=== PATIENT | female | born 1995 | race African-American/Black ===

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

== ENCOUNTER 2017-02-23 14:13 | Observation (INO) | payer MEDICAID ==
[~2017-02-23] VITALS: Ht 156.2 cm; Wt 90.3 kg
[2017-02-23] MEDS ORDERED: PNV1TABL76 MT (14:33)
[2017-02-23] MEDS ORDERED: KEPP500 PO (14:33)
== END 2017-02-23 15:00 | disposition home or self-care (01) ==
LOC: L&D 14:13
PROVIDERS: ADMIT Obstetrics & Gynecology; ATTEND Obstetrics & Gynecology
DX: O26.893 Other specified pregnancy related conditions, third trimester (principal); J11.1 Influenza due to unidentified influenza virus with other respiratory manifestations; O21.2 Late vomiting of pregnancy; Z3A.35 35 weeks gestation of pregnancy
CPT/HCPCS: 99281; G0378

== ENCOUNTER 2017-03-24 11:24 | Inpatient (IN) | payer MEDICAID ==
[~2017-03-24] VITALS: Ht 157.5 cm; Wt 90.7 kg
[~2017-03-24 11:24] MED LIST: KEPP500 PO; PNV1TABL76 MT
[2017-03-24] MEDS ORDERED: CARBOPROST TROMETHAMINE 250 MCG/ML AMPUL IM PRN (11:45)
[2017-03-24] MEDS ORDERED: MISOPROSTOL 200MCG TABLET VG PRN (11:45)
[2017-03-24] MEDS ORDERED: NALOXONE HCL 0.4 MG/ML 1ML VIAL IM PRN (11:45)
[2017-03-24] MEDS ORDERED: LACTATED RINGERS 1,000 ML IV SCH (12:00)
[2017-03-24] MEDS ORDERED: LIDOCAINE HCL 1% 20ML VIAL (Pyxis) INJ INFIL PRN (12:00)
[2017-03-24] MEDS ORDERED: METHYLERGONOVINE MALEATE 0.2 MG/ML IM PRN ×2 (12:00→14:30)
[2017-03-24] MEDS: BUTORPHANOL TARTRATE 2 MG/ML VIAL IV PRN ×2 (12:03→13:18)
[2017-03-24] MEDS ORDERED: PENICILLIN G POTASSIUM 5 MMU in DEXT 5% WATER 100 ML IV NR (12:30)
[2017-03-24 12:51] LABS: CLARITY URINE CLEAR (CLEAR); COLOR URINE YELLOW (YELLOW); KETONES URINE 1+ (NEGATIVE); LEUKOCYTE ESTERASE URINE 3+ (NEGATIVE); NITRITE URINE NEGATIVE (NEGATIVE); OCCULT BLOOD URINE NEGATIVE (NEGATIVE); PROTEIN URINE NEGATIVE (NEGATIVE); SPECIFIC GRAVITY URINE 1.019 (1.005-1.030); UROBILINOGEN URINE 0.2 E.U./dL (0.2-1.0)
[2017-03-24 12:54] LABS: BASOPHILS % 0.2 % (0.0-2.0); EOSINOPHILS % 3.1 % (0.0-5.0); HEMATOCRIT. 27.7 % (36.0-48.0); HEMOGLOBIN. 9.6 g/dL (12.0-16.0); LYMPHOCYTES % 31.2 % (20.0-50.0); MEAN CORPUSCULAR HEMOGLOBIN 27.1 pg (28.0-32.0); MEAN CORPUSCULAR VOLUME 78.5 fL (81.0-99.0); MEAN PLATELET VOLUME 7.9 fl (7.4-10.4); MONOCYTES % 9.5 % (2.0-8.0); PLATELET 254 x1000/uL (130-400); RED BLOOD CELL COUNT 3.53 mill/uL (4.2-5.4); RED CELL DISTRIBUTION WIDTH 13.4 % (11.6-14.6)
[2017-03-24 13:00] LABS: PARTIAL THROMBOPLASTIN TIME 29.8 sec (23.4-31.0); PROTHROMBIN TIME 10.2 sec (9.4-11.6)
[2017-03-24 13:05] LABS: CHLORIDE 104 mEq/L (98-107)
[2017-03-24 13:14] LABS: *AMPHETAMINES SCREEN URINE NEGATIVE (NEGATIVE); *BARBITURATES SCREEN URINE NEGATIVE (NEGATIVE); *BENZODIAZEPINES SCREEN URINE NEGATIVE (NEGATIVE); *COCAINE SCREEN URINE NEGATIVE (NEGATIVE); METHADONE URINE SCREEN NEGATIVE (NEGATIVE); OPIATES URINE SCREEN NEGATIVE (NEGATIVE); PHENCYCLIDINE URINE SCREEN NEGATIVE (NEGATIVE)
[2017-03-24 13:24] LABS: CANNABINOID URINE SCREEN PRESUMTIVE POSITIVE (NEGATIVE)
[2017-03-24 13:28] LABS: HEPATITIS B SURFACE ANTIGEN NEGATIVE; RUBELLA IGG 39.2 IU/mL (4.99-10)
[2017-03-24] MEDS: DEXT 5%/LR + PITOCIN 20UNITS/L 1,000 ML IV SCH ×2 (13:37→14:25)
[2017-03-24] MEDS: LEVETIRACETAM 500MG TABLET PO SCH ×2 (13:37→21:09)
[2017-03-24] MEDS ORDERED: ONDANSETRON HCL 4MG/2ML VIAL IV PRN (14:15)
[2017-03-24] MEDS ORDERED: DEXT 5%/LR + PITOCIN 20UNITS/L 1,000 ML IV SCH (14:21)
[2017-03-24] MEDS ORDERED: ACETAMINOPHEN WITH CODEINE 300/30MG TABLET PO PRN ×2 (14:30)
[2017-03-24] MEDS ORDERED: BENZOCAINE/LANOLIN/ALOE VERA SPRAY TOP PRN (14:30)
[2017-03-24] MEDS ORDERED: DIPHENHYDRAMINE 25MG CAPSULE PO PRN (14:30)
[2017-03-24] MEDS ORDERED: GLYCERIN/WITCH HAZEL LEAF MEDICATED PAD TOP PRN (14:30)
[2017-03-24] MEDS ORDERED: LANOLIN OINT 0.25 GM TUBE TOP PRN (14:30)
[2017-03-24] MEDS ORDERED: HEMORRHOIDAL SUPP PR PRN (14:30)
[2017-03-24] MEDS ORDERED: IBUPROFEN 400MG TABLET PO PRN (14:30)
[2017-03-24] MEDS ORDERED: TETANUS, DIPHTHERIA, PERTUSSIS VAC/PF 0.5ML (>7YR OLD) IM ONE (14:30)
[2017-03-24 15:30] VITALS: BP 131/71
[2017-03-24 16:00] VITALS: BP 123/68
[2017-03-24] MEDS ORDERED: PENICILLIN G POTASSIUM 2.5 MMU in DEXTROSE 5% WATER 50 ML IV SCH ×4 (16:30)
[2017-03-24] MEDS ORDERED: INFLUENZA VIRUS VACCINE 0.5ML SYR IM ONE (17:00)
[2017-03-24] MEDS: MAGNESIUM/ALUMINUM HYDROXIDE/SIMETHICONE 30ML UDC PO SCH (18:57)
[2017-03-24 19:07] LABS: BASOPHILS % 0.1 % (0.0-2.0); EOSINOPHILS % 0.7 % (0.0-5.0); HEMATOCRIT. 26.7 % (36.0-48.0); HEMOGLOBIN. 9.2 g/dL (12.0-16.0); LYMPHOCYTES % 12.7 % (20.0-50.0); MEAN CORPUSCULAR HEMOGLOBIN 27.4 pg (28.0-32.0); MEAN CORPUSCULAR VOLUME 79.7 fL (81.0-99.0); MEAN PLATELET VOLUME 8.5 fl (7.4-10.4); NEUTROPHILS % 78.5 % (40.0-76.0); PLATELET 243 x1000/uL (130-400); RED BLOOD CELL COUNT 3.35 mill/uL (4.2-5.4)
[2017-03-24] MEDS ORDERED: LEVETIRACETAM 500MG TABLET PO SCH (21:00)
[2017-03-24] MEDS ORDERED: CARBAMAZEPINE 200MG TABLET PO SCH (21:00)
[2017-03-24] MEDS: DOCUSATE SODIUM 100MG CAPSULE PO SCH (21:09)
[2017-03-24] MEDS: SIMETHICONE 80MG TABLET CHEW PO SCH (21:10)
[2017-03-24] MEDS: CARBAMAZEPINE 200MG TABLET PO SCH (22:25)
[2017-03-25 00:40] VITALS: BP 124/64
[2017-03-25 06:28] LABS: BASOPHILS % 0.4 % (0.0-2.0); EOSINOPHILS % 4.6 % (0.0-5.0); HEMATOCRIT. 24.5 % (36.0-48.0); HEMOGLOBIN. 8.4 g/dL (12.0-16.0); LYMPHOCYTES % 25.7 % (20.0-50.0); MEAN CORPUSCULAR HEMOGLOBIN 27.4 pg (28.0-32.0); MEAN CORPUSCULAR VOLUME 79.4 fL (81.0-99.0); MEAN PLATELET VOLUME 8.1 fl (7.4-10.4); MONOCYTES % 8.9 % (2.0-8.0); NEUTROPHILS % 60.4 % (40.0-76.0); PLATELET 223 x1000/uL (130-400); RED BLOOD CELL COUNT 3.08 mill/uL (4.2-5.4); RED CELL DISTRIBUTION WIDTH 13.3 % (11.6-14.6)
[2017-03-25 09:00] VITALS: BP 128/61
[2017-03-25] MEDS: LEVETIRACETAM 500MG TABLET PO SCH ×2 (10:16→20:50)
[2017-03-25] MEDS: PRENATAL VIT/FE FUMARATE/FA TABLET PO SCH (10:17)
[2017-03-25] MEDS: CARBAMAZEPINE 200MG TABLET PO SCH ×2 (10:17→20:51)
[2017-03-25] MEDS: FERROUS SULFATE 325MG TABLET PO SCH ×2 (10:17→16:31)
[2017-03-25] MEDS: SIMETHICONE 80MG TABLET CHEW PO SCH ×3 (10:18→20:48)
[2017-03-25] MEDS: MAGNESIUM/ALUMINUM HYDROXIDE/SIMETHICONE 30ML UDC PO SCH ×3 (10:19→20:48)
[2017-03-25 16:00] VITALS: BP 106/43
[2017-03-25 20:00] VITALS: BP 106/67
[2017-03-25] MEDS: DOCUSATE SODIUM 100MG CAPSULE PO SCH (20:49)
[2017-03-26 05:15] VITALS: BP 105/65
[2017-03-26 07:42] VITALS: BP 114/63
[2017-03-26] MEDS: MAGNESIUM/ALUMINUM HYDROXIDE/SIMETHICONE 30ML UDC PO SCH (08:50)
[2017-03-26] MEDS: LEVETIRACETAM 500MG TABLET PO SCH (08:51)
[2017-03-26] MEDS: PRENATAL VIT/FE FUMARATE/FA TABLET PO SCH (08:51)
[2017-03-26] MEDS: SIMETHICONE 80MG TABLET CHEW PO SCH (08:51)
[2017-03-26] MEDS: FERROUS SULFATE 325MG TABLET PO SCH (08:51)
[2017-03-26] MEDS: CARBAMAZEPINE 200MG TABLET PO SCH (08:52)
== END 2017-03-26 10:45 | disposition home or self-care (01) | DRG 560 ==
LOC: L&D 11:24 → OBSVTOIN 13:07 → 7EST PP/OB 15:07
PROVIDERS: ADMIT Specialist; ATTEND Specialist
PROC: 0HQ9XZZ Repair Perineum Skin, External Approach (ICD-10-PCS; 2017-03-24)
PROC: 10E0XZZ Delivery of Products of Conception, External Approach (ICD-10-PCS; principal; 2017-03-24 13:07)
DX: O99.354 Diseases of the nervous system complicating childbirth (principal); G40.909 Epilepsy, unspecified, not intractable, without status epilepticus; D64.9 Anemia, unspecified; O99.02 Anemia complicating childbirth; O99.324 Drug use complicating childbirth; F12.10 Cannabis abuse, uncomplicated; O70.0 First degree perineal laceration during delivery; O71.82 Other specified trauma to perineum and vulva; Z3A.39 39 weeks gestation of pregnancy; Z37.0 Single live birth; Z79.899 Other long term (current) drug therapy
CPT/HCPCS: 36415; 80053; 80305; 80349; 81001; 85025; 85610; 85730; 86592; 86703; 86762; 86850; 86900; 87086; 87340; G0378; J0595; J2310; J2540; J2590; J3490; J7060; J7120

== ENCOUNTER 2022-09-21 05:41 | Emergency (ER) | payer MEDICAID ==
[~2022-09-21] VITALS: Ht 170.2 cm; Wt 74.0 kg
[~2022-09-21 05:41] MED LIST changes: -PNV1TABL76 MT
[2022-09-21 05:46] VITALS: TEMP 98.5; O2SAT 100
[2022-09-21] MEDS ORDERED: CARBAMAZEPINE 100MG TABLET CHEW PO ONE (06:30)
[2022-09-21] MEDS ORDERED: LEVETIRACETAM 500MG TABLET PO ONE (06:30)
[2022-09-21 07:58] LABS: *AMPHETAMINES SCREEN URINE NEGATIVE (NEGATIVE); *BARBITURATES SCREEN URINE NEGATIVE (NEGATIVE); *BENZODIAZEPINES SCREEN URINE NEGATIVE (NEGATIVE); *COCAINE SCREEN URINE NEGATIVE (NEGATIVE); ECSTASY MDMA SCREEN URINE NEGATIVE (NEGATIVE); METHADONE URINE SCREEN NEGATIVE (NEGATIVE); OPIATES URINE SCREEN NEGATIVE (NEGATIVE); PHENCYCLIDINE URINE SCREEN NEGATIVE (NEGATIVE)
[2022-09-21 08:04] LABS: CANNABINOID URINE SCREEN PRESUMTIVE POSITIVE (NEGATIVE)
[2022-09-21 08:23] VITALS: BP 149/88; PULSE 64; RESP 14
== END 2022-09-21 09:25 | disposition home or self-care (01) ==
LOC: ER 06:02
DX: R56.9 Unspecified convulsions (principal); Z91.148 Patient's other noncompliance with medication regimen for other reason
CPT/HCPCS: 80305; 99283